=== PATIENT | female | born 1985 | race Caucasian/White ===

== ENCOUNTER 2024-03-29 08:04 | Outpatient (AMB) | payer BC, SELFPAY ==
--- NOTE | 2024-03-29 08:10 | A.OFFPC_ITS ---
Vital Signs 03/29/24 08:14 Height 5 ft 2 in Weight 145 lb 4 oz BMI 26.6 BP 114/64 Blood Pressure Location Rt brachial Position Sitting Respiration 14 Pulse 89 Pulse Source Pulse Oximeter Pulse Oximetry (%) 98 Oxygen Delivery Method Room Air Intake Visit Reasons: Establish Care Intake Note: new patient to establish care Allergies No Known Allergies Allergy (Verified 03/29/24 08:23) Medication List - Last Reconciled 03/29/24 by Charlotte Morales, CYTOLOGIST- fluoxetine 20 mg PO DAILY propranolol 10 mg PO DAILY Tobacco use date assessed: 03/29/24 Dental Screening Dental Screen Date: 03/29/24 Did you have a dental visit in the last 12 months?: Yes Did you have a dental problem in the last 6 months where you did not have access to dental care?: No Was dental information given to patient?: Patient has dentist HPI HPI Comments History of Present Illness Details 38-year-old ARJUN, IBS 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 PAP ? Tdap Specialists: Counselor FABIAN Garcia Here today to [facility], Coming from [facility] No medical record avail today. ARJUN worse over the last year, on BB and SSRI. SSRI was increased recently. BB is PRN only. Has physical sx of heart racing, BB is helping. However did not work on its own, better w/ SSRI. Mornings seem to be worse along w/ half of the day. Had one episode of panic. Tried taking SSRI at HS and now taking in the AM. A few weeks ago, felt like could not get OOB, felt so tired. Then the last week, cannot sleep. Her initial sx started while at work about 1 year ago. Reports no sx prior to that. Grandfather did around-obi this time. Admits to being a worrier by nature. Reports regular periods. vasectomy. Recent labs to include thyroid labs and US done and WNL. Did holter monitor, too, 24 hours. Reports negative finding. Active w/ counselor. Has chronic GI issues, has had lots of testing done to include EGD, colon, US, gastroparesis r/o. Has repeat colon scheduled this year. States the only dx was IBS. Feels bloated, gassy, inconsistent bowels. No vomiting or wt loss. No known triggers. Improved w/ childbearing. Negative food allergy testing by PCP & GI Mapping + parasite and bacteria, tx w/ AB. Also noted inflammation. Denies worsenig of sx w/ SSRI. Exam: awake alert NAD scleras nonicteric MMM RRR LS CTAB Abd soft, nontender, normoactive BS x 4 Mood and affect approriate Plan: Increase prozac from 20mg to 30mg QD. Cont propranolol 10mg PRN for anxiety. Cont care w/ GI, get me medical records please to review RTO 6 weeks for f/u on prozac increase, sooner PRN This note is constructed using voice recognition software. While every effort has been made to ensure accuracy in fashion buyer, still errors may have been included Sometimes, these errors may affect the content or meaning of the given sentence . Total time spent caring for the patient today was 34 minutes. This includes time spent before the visit reviewing the chart, time spent during the visit, and time spent after the visit on documentation PFSH Medical History (Updated 03/29/24 @ 08:55 by Charlotte Morales, [facility]) IBS (irritable bowel syndrome) Anxiety Surgical History (Updated 03/29/24 @ 08:24 by Abena Ambrocio) No pertinent past surgical history Family History (Updated 03/29/24 @ 08:25 by Abena Ambrocio) Father High cholesterol Maternal Grandmother Prostate cancer Paternal Grandfather Lung cancer Social History Housing: House Patient Tobacco Use Status: Never used Tobacco e-Cigarette/Vaping Use: Never Used service: No Current occupational status: employed 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 1. Little interest or pleasure in doing things: not at all 2. Feeling down, depressed, or hopeless: not at all 3. Trouble falling or staying asleep, or sleeping too much: several days 4. Feeling tired or having little energy: not at all 5. Poor appetite or overeating: not at all 6. Feeling bad about yourself - or that you are a failure or have let yourself or your family down: not at all 7. Trouble concentrating on things, such as reading the newspaper or watching television: not at all 8. Moving or speaking so slowly that other people could have noticed. Or the opposite - being so fidgety or restless that you have been moving around a lot more than usual: not at all 9. Thoughts that you would be better off or of hurting yourself in some way: not at all Total score: 1 Depression Screening Interpretation: Negative Depression Screening Done: Yes 74031 - PHQ-9 Billing: Yes Source: Developed by Drs. Randy Robins, Monae Maldonado, Sen Muller and colleagues, with an educational ada from [employer]. Thrive Questionnaire Date Thrive assessed: 03/29/24 I am a: Patient What is your living situation today?: I have a steady place to live Within the past 12 months, did the food you bought not last and you didn't have the money to get more?: Never true Within the past 12 months, did you worry whether your food would run out before you got money to buy more?: Never true Do you have trouble paying for medicines?: No Do you have trouble getting transportation to medical appointments?: No Do you have trouble paying your heating and electricity bill?: No Do you have trouble taking care of your child, family member or friend?: No Do you have trouble with day-to-day activities such as bathing, preparing meals, shopping, managing finances, etc.?: No Are you currently unemployed and looking for a job?: No Are you interested in more education?: No THRIVE Score: 0 AUDIT C Alcohol Use Questionnaire (AUDIT-C) 1. How often do you have a drink containing alcohol?: Never Total Score: 0 Score Reviewed/Action Taken: Yes ARJUN-7 AMB Questionnaire ARJUN-7 Date ARJUN - 7 assessed: 03/29/24 Feeling nervous, anxious, or on edge: 1 = Several days Not being able to stop or control worryin = Not at all Worrying too much about different things: 1 = Several days Trouble relaxin = Not at all Being so restless that it is hard to sit still: 0 = Not at all Becoming easily annoyed or irritable: 0 = Not at all Feeling afraid as if something awful might happen: 0 = Not at all Total ARJUN-7 score (0-4 normal; 5-9 mild; 10-14 moderate; 15-21 severe): 2 Source: Developed by Drs. Randy Robins, Monae Maldonado, Sen Muller and colleagues, with an educational ada from [employer]. ARJUN-7 Assessment Billing ARJUN-7 Assessment Tool: ARJUN-7 Assessment 66667 Physical exam (Primary Care) Vital Signs: Last Vital Signs Pulse 89 03/29/24 08:14 Resp 14 03/29/24 08:14 BP 114/64 03/29/24 08:14 Pulse Ox 98 03/29/24 08:14 Oxygen Delivery Method Room Air 03/29/24 08:14 BMI result Body Mass Index 26.6 Tobacco/Smoking Status: Tobacco use Status Tobacco use date assessed 03/29/24 03/29/24 08:19 Patient Tobacco Use Status Never used Tobacco 03/29/24 08:19 e-Cigarette/Vaping Use Never Used 03/29/24 08:19 PHQ-9: PHQ-9 Score PHQ-9: Total score 1 03/29/24 08:21 Depression Screening Interpretation: Negative Thrive Assessment: Date of Thrive Assessment Date Thrive assessed 03/29/24 03/29/24 08:21 Assessment and Plan Assessment & Plan (1) ARJUN (generalized anxiety disorder): Code(s): F41.1 - Generalized anxiety disorder (2) IBS (irritable bowel syndrome): Code(s): K58.9 - Irritable bowel syndrome without diarrhea Qualifiers: Irritable bowel syndrome type: with both diarrhea and constipation Qualified Code(s): K58.2 - Mixed irritable bowel syndrome Medications: New fluoxetine 10 mg PO DAILY 30 caps 1RF Patient Instructions: Walk-In Care (Urgent Care): We Make it Easy Walk-in for urgent medical issues such as: ? Seasonal Allergies ? Insect Bites ? Cough ? Diarrhea ? Acute Asthma Attacks ? Back, Knee or Joint Pain ? Ear Infection ? Fever without a Rash ? Headaches ? Nausea ? [place] Eye, Rash or Skin Irritation ? Sore Throat ? Sports Physicals ? Vomiting Most insurances are accepted. Patients do not need to be part of the [facility] to seek care at the walk-in clinic. Locations [facility] , [place] [address] ? [phone] [facility] Walk-In Care in [place] provides services to ages 18 and over. Open Wednesday-Wednesday: 8 a.m. to 5 p.m. and Wednesday: 9 a.m. to 3 p.m.* *Hours may vary due to staffing availability. To confirm Walk-In Care hours in [place], please call [phone]. [address] [place] [address] ? [phone] [facility] Walk-In Care in [place] provides services to ages 12 and over. Open Wednesday-Wednesday: 8 a.m. to 5 p.m. Hours may vary due to staffing availability. To confirm Walk-In Care hours in [place], please call [phone]. LABORATORY SERVICES: [facility] Lab ? Primary Location [address] [place] [address] Wednesday through Wednesday 6:00 AM ? 5:00 PM Wednesday 7:00 AM ? 11:00 AM* [phone] The [facility] Lab is centrally located near the front entrance of the [facility] for easy outpatient access. Convenient parking is provided for outpatients. *Hours may vary due to staffing availability. To confirm Laboratory hours for any location, please call [phone]. Offsite Location For your convenience, we offer offsite laboratory draw stations at the following locations: [address] [place] [address] ? [address], [address] Wednesday through Wednesday 7:30 AM ? 1:00 PM* [phone] *Hours may vary due to staffing availability. To confirm Laboratory hours for any location, please call [phone]. [place] ? [address] Wednesday through Wednesday 6:00 AM ? 3:30 PM* Wednesday 6:30 AM ? 3 PM* [phone] *Hours may vary due to staffing availability. To confirm Laboratory hours for any location, please call [phone] [place] [address] Wednesday through Wednesday 7:30 AM ? 4:00 PM* [phone] *Hours may vary due to staffing availability. To confirm Laboratory hours for any location, please call [phone]. [facility] Wednesday through 9:00 AM ? 4:00 PM* *Hours may vary due to staffing availability. To confirm Laboratory hours for any location, please call [phone]. Appointments are not necessary. Walk-ins are welcome. Like all the departments throughout the [facility], our Lab undergoes frequent reviews to ensure the quality and accuracy of test results, and our staff takes special pride in its status as a nationally accredited facility. Patient Portal: ONE PATIENT. ONE RECORD. BETTER CARE. [facility] has a fully integrated, cutting- edge mobile electronic health information system that has revolutionized the way we care for our patients and manage our organization. This system improves communication and coordination enabling us to provide safe, higher-quality care, and an overall positive experience for staff and patients. Our first priority, as always, is to deliver the highest quality care possible. The system is running in the background supporting that priority. This portal is for all [facility] services and practices. If you are experiencing any technical difficulties with enrolling or logging into the Patient Portal please complete the [facility] Patient Portal Technical Support Form. [facility] now offers a new secure on-line interactive tool for patients to review their health information ? Patient Portal. This interactive web portal will enable patients and their families to take an active role in their care by providing easy, secure access to their health information via the internet. The Patient Portal provides patients with instant access to their health information, including laboratory results, medications, allergies, demographic information, visit history, and more. In addition to managing their own care, parents and health care proxies with authorized consent will appreciate the ability to access the records of those individuals for whom they provide care. Please note: if you wish to gain access (Proxy) to another patient?s portal, you will be required to come to the Medical Records Department in person at [facility]. Both the patient giving proxy access and the proxy will need to provide photo identification and complete the appropriate authorization. The Patient Portal also allows track their appointments online. The [facility] Patient Portal also saves patients time by allowing them to submit updates to their demographic and contact information prior to their visits. Portal email notifications will also alert patients to any new activity on their portal, such as test results and new appointments. In order to initially enroll in the [facility] Patient Portal, you will need to enter some required information including the following: ? your [facility] Medical Record number ? your personal home email address ? name ? date of Please note: In order to enroll in the [facility] Patient Portal, we need to have your email address on file in your electronic medical record. The email address needs to be specific for one person (yourself) in order for your Portal enrollment to be successful. You can update your email address in person with our Registration staff when you are registering for a hospital visit. Otherwise, you will need to come to the Health Information Management (Medical Records) Department at [facility]. We are open from Wednesday ? Wednesday from 7:30 a.m. ? 4:30 p.m. You will be required to present a photo id. Once you have successfully enrolled in the Patient Portal, you will receive a one-time user id and password for the Portal, sent to your email address. This will allow you to log into the Patient Portal within 99 hrs and reset your own logon id and password, and define personal security questions. Once your permanent login and password have been set, you can log into the [facility] Patient Portal at any time via the blue button above or from the Portal Logon button on any page of the [facility] website. [facility] encourage all of our patients to enroll in Patient Portal as it presents a valuable opportunity for patients and their families to actively participate in their care and stay healthy Welcome to [facility]. We look forward to working with you. Coding Level of Care Code New Pt Level 3 (89052) Diagnoses ARJUN (generalized anxiety disorder) F41.1 Irritable bowel syndrome with both constipation and diarrhea K58.2 Irritable bowel syndrome type: with both diarrhea and constipation Additional Codes ARJUN-7 Assessment Billing - ARJUN-7 Assessment Tool: ARJUN-7 Assessment 29178 ([id number])
[2024-03-29 08:14] VITALS: BP 114/64; PULSE 89; RESP 14; O2SAT 98; BMI 26.6
== END 2024-03-29 09:00 | disposition home or self-care (01) ==
PROVIDERS: PCP Nurse Practitioner Family; Visit Provider Nurse Practitioner Family
DX: F41.1 Generalized anxiety disorder (principal); K58.2 Mixed irritable bowel syndrome
CPT/HCPCS: 96127; 99203

== ENCOUNTER 2024-05-11 09:42 | Outpatient (AMB) | payer BC, SELFPAY ==
--- NOTE | 2024-05-11 09:45 | MHC.PC.OV ---
Vital Signs 05/11/24 09:48 05/11/24 10:35 Height 5 ft 2 in Weight 150 lb 6 oz BMI 27.5 BP 98/66 118/62 Blood Pressure Location Rt brachial Rt brachial Position Sitting Sitting Respiration 13 Pulse 88 Pulse Source Pulse Oximeter Pulse Oximetry (%) 97 Oxygen Delivery Method Room Air Intake Visit Reasons: F/U on meds Intake Note: follow up on meds and shes not sure when was her last pap. 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 Awakes feeling better . Sometimes feels like anxiety better, sometimes not. Feel like had 2 weeks straight that were bad, took Propranolol QD Then had 1 week that was great. Didnt need the PRN BB Then the past week was a mix of sx. Denies any situation/environment change, new stessors. Describes lump in throat thinks she is having reflux, heart burn, taking Tums and pepcid with + effect. In December choked after swallowing supplements. then ate oatmeal felt like it didnt go down; tried h20, it came back out again. Since this time, anxious about choking. a few weeks ago this is not working in regards to her anxiety being managed. Exam: awake alert NAD scleras nonicteric MMM RRR LS CTAB Mood and affect approriate Plan: Discuss today that the reflux symptoms are likely related to the increase in the propranolol use. Okay to continue to use Tums or Pepcid to control the acid reflux. Ultimately the goal would be to better control her anxiety so that there was no need to use the propranolol as often. STart 05/14/24 Take Prozac 10 mg Daily, Start Buspirone 5mg po BID at the same time 05/21/24 Take prozac every other day 3 Wed/Wed/05/28 take one dose on Wednesday then STOP. Please schedule fu for pap with ObGyn RTO 6 weeks to f/u on ARJUN. Sooner PRN This note is constructed using voice recognition software. While every effort has been made to ensure accuracy in medical cost consultant, still errors may have been included Sometimes, these errors may affect the content or meaning of the given sentence . Total time spent caring for the patient today was 34 minutes. This includes time spent before the visit reviewing the chart, time spent during the visit, and time spent after the visit on documentation PFSH Medical History (Updated 05/11/24 @ 10:54 [facility] IBS (irritable bowel syndrome) Anxiety Surgical History (Updated 03/29/24 @ 08:24 by Abena Ambrocio MA) No pertinent past surgical history Family History (Updated 03/29/24 @ 08:25 by Abena Ambrocio MA) Father High cholesterol Maternal Grandmother Prostate cancer Paternal Grandfather Lung cancer Social History Housing: House Patient Tobacco Use Status: Never used Tobacco e-Cigarette/Vaping Use: Never Used service: No Current occupational status: employed 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 1. Little interest or pleasure in doing things: not at all 2. Feeling down, depressed, or hopeless: not at all 3. Trouble falling or staying asleep, or sleeping too much: several days 4. Feeling tired or having little energy: several days 5. Poor appetite or overeating: not at all 6. Feeling bad about yourself - or that you are a failure or have let yourself or your family down: not at all 7. Trouble concentrating on things, such as reading the newspaper or watching television: not at all 8. Moving or speaking so slowly that other people could have noticed. Or the opposite - being so fidgety or restless that you have been moving around a lot more than usual: not at all 9. Thoughts that you would be better off or of hurting yourself in some way: not at all Total score: 2 44951 - PHQ-9 Billing: Yes Source: Developed by Drs. Randy Roibns, Monae Maldonado, Sen Muller and colleagues, with an educational ada from [employer]. Thrive Questionnaire Date Thrive assessed: 05/11/24 I am a: Patient What is your living situation today?: I have a steady place to live Within the past 12 months, did the food you bought not last and you didn't have the money to get more?: Never true Within the past 12 months, did you worry whether your food would run out before you got money to buy more?: Never true Do you have trouble paying for medicines?: No Do you have trouble getting transportation to medical appointments?: No Do you have trouble paying your heating and electricity bill?: No Do you have trouble taking care of your child, family member or friend?: No Do you have trouble with day-to-day activities such as bathing, preparing meals, shopping, managing finances, etc.?: No Are you currently unemployed and looking for a job?: No Are you interested in more education?: No Please select the resources that you would like help with: None Currently or been in a relationship where the following occur: No concerns reported THRIVE Score: 0 AUDIT C Alcohol Use Questionnaire (AUDIT-C) 1. How often do you have a drink containing alcohol?: 2-3 times a week 2. How many drinks containing alcohol do you have on a typical day when you are drinking?: 3 or 4 Total Score: 4 ARJUN-7 AMB Questionnaire ARJUN-7 Date ARJUN - 7 assessed: 05/11/24 Feeling nervous, anxious, or on edge: 1 = Several days Not being able to stop or control worryin = Not at all Worrying too much about different things: 1 = Several days Trouble relaxin = Not at all Being so restless that it is hard to sit still: 0 = Not at all Becoming easily annoyed or irritable: 0 = Not at all Feeling afraid as if something awful might happen: 1 = Several days Total ARJUN-7 score (0-4 normal; 5-9 mild; 10-14 moderate; 15-21 severe): 3 Source: Developed by Drs. Randy Robins, Monae Maldonado, Sen Muller and colleagues, with an educational ada from [employer]. ARJUN-7 Assessment Billing ARJUN-7 Assessment Tool: ARJUN-7 Assessment 86848 Physical exam (Primary Care) Vital Signs: Last Vital Signs Pulse 88 05/11/24 09:48 Resp 13 05/11/24 09:48 BP 118/62 05/11/24 10:35 Pulse Ox 97 05/11/24 09:48 Oxygen Delivery Method Room Air 05/11/24 09:48 BMI result Body Mass Index 27.5 Tobacco/Smoking Status: Tobacco use Status Tobacco use date assessed 03/29/24 05/11/24 09:47 Patient Tobacco Use Status Never used Tobacco 05/11/24 09:47 e-Cigarette/Vaping Use Never Used 05/11/24 09:47 PHQ-9: PHQ-9 Score PHQ-9: Total score 2 05/11/24 10:09 Thrive Assessment: Date of Thrive Assessment Date Thrive assessed 05/11/24 05/11/24 09:47 Currently or been in a relationship where the following occur: No concerns reported Coding Level of Care Code Est Pt Level 4 (34565) Complex EM visit Add On G2211 Diagnoses ARJUN (generalized anxiety disorder) F41.1 GERD without esophagitis K21.9 Screening for cervical cancer Z12.4 Additional Codes ARJUN-7 Assessment Billing - ARJUN-7 Assessment Tool: ARJUN-7 Assessment 10257 ([id number]) Assessment & Plan Assessment & Plan (1) ARJUN (generalized anxiety disorder): Code(s): F41.1 - Generalized anxiety disorder Category: Medical Plan: . (2) GERD without esophagitis: Code(s): K21.9 - Gastro-esophageal reflux disease without esophagitis Category: Medical Plan: . (3) Screening for cervical cancer: Code(s): Z12.4 - Encounter for screening for malignant neoplasm of cervix Plan: . Medications: New buspirone 5 mg PO BID 60 tabs 1RF Discontinued fluoxetine Discontinued Reason: Doctor's Order 10 mg PO DAILY 30 caps 1RF fluoxetine Discontinued Reason: Doctor's Order 20 mg PO DAILY 30 caps 1RF Patient Instructions: Plan: STart 05/14/24 Take Prozac 10 mg Daily, Start Buspirone 5mg po BID at the same time 05/21/24 Take prozac every other day 3 Wed/Wed/05/28 take one dose on Wednesday then STOP
[2024-05-11 09:48] VITALS: BP 98/66; PULSE 88; RESP 13; O2SAT 97; BMI 27.5
[2024-05-11 10:35] VITALS: BP 118/62
== END 2024-05-11 10:23 | disposition home or self-care (01) ==
PROVIDERS: PCP Nurse Practitioner Family; Visit Provider Nurse Practitioner Family
DX: F41.1 Generalized anxiety disorder (principal); K21.9 Gastro-esophageal reflux disease without esophagitis; Z12.4 Encounter for screening for malignant neoplasm of cervix

== ENCOUNTER → 2024-05-11 09:42 | Outpatient (BNVA) | payer BC, SELFPAY | PROVIDERS: PCP Nurse Practitioner Family; Visit Provider Nurse Practitioner Family | DX: F41.1 Generalized anxiety disorder (principal); K21.9 Gastro-esophageal reflux disease without esophagitis; Z79.899 Other long term (current) drug therapy | CPT/HCPCS: 96127 ==

== ENCOUNTER 2024-06-28 13:07 | Outpatient (AMB) | payer BC, SELFPAY ==
--- NOTE | 2024-06-28 13:14 | A.OFFPC_ITS ---
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 She has a history of generalized anxiety disorder and was experiencing daily symptoms characterized by feelings of nervousness, heart racing, and a sensation of ellen owness in her throat. These symptoms intensified during a period when she was taking her buspirone twice daily. She reported feeling an improvement when the dosage of buspirone was increased to three times a day, though occasional symptoms persisted. Overall she feels tired, exhausted, can nap at anytime. + snoring. Never had sleep study The patient also experienced palpitations occurring during non-strenuous activities, such as sitting at her desk or resting in bed. This symptom has shown improvement since the increase in buspirone dose. She reported not using propranolol after experiencing previous symptoms of reflux, which has since resolved. The patient noted exertional dyspnea, experiencing an increased heart rate and breathlessness during activities like climbing stairs or carrying laundry. She engages primarily in weightlifting and yoga, with limited cardio exercise, which might contribute to these symptoms. Physical Exam General: Awake, alert. No apparent distress Eyes: Sclera and conjunctiva clear bilaterally Cardiovascular: RRR Respiratory: Clear to auscultation bilaterally, no shortness of breath noted during examination Results - Previous Holter monitor completed; res ults reportedly normal . Plan 1. Generalized Anxiety Disorder: Adjust buspirone to 7.5 mg three times daily, with consideration to increase to 10 mg three times daily depending on symptom c ontrol. Encourage consistent medication timing. 2. Palpitations: Monitor symptoms with c urrent medication adjustments; review possible stress-related triggers. 3. Exertional Dyspnea: Maintain awarenes s of symptom patterns, consider a stress echocardiogram if symptoms persist or worsen. 4. Gastroesophageal Reflux Disease: Reso lved; no active management needed. 5. Sleep Study: Consider an at-home slee p study to rule out sleep disturbances such as sleep apnea. Patient was informed and verbally consented to the use of an ambient scribe for clinic note documentation during this visit. Discussion Notes During the visit, we discussed the management of the patient's anxiety, including the benefits and potential dosage adjustments for buspirone. The patient was made aware of the importance of consistent medication timing and the possibility of side effects. We talked about the potential need for a sleep study if symptoms of fatigue persist, acknowledging the potential link between a nxiety and sleep disturbances. The patient was advised to monitor the pattern of palpitations and shortness of breath, considering further cardiovascular evaluation if necessary. Follow-up was suggested to assess the effectiveness of medication adjustments and overall symptom control. Patient Instructions - Take buspirone consistently at schedul ed times and consider adjusting to 7.5 mg - 10 three times daily. - Log symptoms of palpitations and exert ional dyspnea, paying attention to triggers or patterns. - Consider increasing cardio exercise gr adually. - Monitor fatigue levels; consider a sle ep study if symptoms persist. - Notify if there are any issues with me dication filling or if symptoms worsen. RTO 6-8 WEEKS TO F/U ON ^ BUSPIRONE, SOB, PALPIATIONS, SOONER PRN THIS NOTE IS CONSTRUCTED USING VOICE RECOGNITION SOFTWARE. WHILE EVERY EFFORT HAS BEEN MADE TO ENSURE ACCURACY IN DIVINITY PROFESSOR, STILL ERRORS MAY HAVE BEEN INCLUDED SOMETIMES, THESE ERRORS MAY AFFECT THE CONTENT OR MEANING OF THE GIVEN SENTENCE . TOTAL TIME SPENT CARING FOR THE PATIENT TODAY WAS 42 MINUTES. THIS INCLUDES TIME SPENT BEFORE THE VISIT REVIEWING THE CHART, TIME SPENT DURING THE VISIT, AND TIME SPENT AFTER THE VISIT ON DOCUMENTATION PFSH Medical History (Updated 06/28/24 @ 14:03 by MIGUELINA Morris) IBS (irritable bowel syndrome) Anxiety Surgical History (Updated 03/29/24 @ 08:24 by Abena Ambrocio MA) No pertinent past surgical history Family History (Updated 03/29/24 @ 08:25 by Abena Ambrocio MA) Father High cholesterol Maternal Grandmother Prostate cancer Paternal Grandfather Lung cancer Social History Housing: House Patient Tobacco Use Status: Never used Tobacco e-Cigarette/Vaping Use: Never Used service: No Current occupational status: employed 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 21767 - PHQ-9 Billing: Patient declined-do not bill Source: Developed by Drs. Randy Robins, Monae Maldonado, Sen Muller and colleagues, with an educational ada from [employer]. Thrive Questionnaire Date Thrive assessed: 06/28/24 I am a: Patient What is your living situation today?: I have a steady place to live Within the past 12 months, did the food you bought not last and you didn't have the money to get more?: Never true Within the past 12 months, did you worry whether your food would run out before you got money to buy more?: Never true Do you have trouble paying for medicines?: No Do you have trouble getting transportation to medical appointments?: No Do you have trouble paying your heating and electricity bill?: No Do you have trouble taking care of your child, family member or friend?: No Do you have trouble with day-to-day activities such as bathing, preparing meals, shopping, managing finances, etc.?: No Are you currently unemployed and looking for a job?: No Are you interested in more education?: No Please select the resources that you would like help with: None Currently or been in a relationship where the following occur: No concerns reported THRIVE Score: 0 ARJUN-7 AMB Questionnaire ARJUN-7 Date ARJUN - 7 assessed: 05/11/24 Source: Developed by Drs. Randy Robins, Monae Maldonado, Sen Muller and colleagues, with an educational ada from [employer]. Physical exam (Primary Care) Vital Signs: Last Vital Signs Pulse 88 06/28/24 13:18 Resp 13 06/28/24 13:18 BP 124/79 06/28/24 13:18 Pulse Ox 98 06/28/24 13:18 Oxygen Delivery Method Room Air 06/28/24 13:18 BMI result Body Mass Index 28.0 Tobacco/Smoking Status: Tobacco use Status Tobacco use date assessed 03/29/24 06/28/24 13:15 Patient Tobacco Use Status Never used Tobacco 06/28/24 13:15 e-Cigarette/Vaping Use Never Used 06/28/24 13:15 Thrive Assessment: Date of Thrive Assessment Date Thrive assessed 06/28/24 06/28/24 13:15 Currently or been in a relationship where the following occur: No concerns r eported Coding Level of Care Code Est Pt Level 5 (98837) Complex EM visit Add On G2211 Diagnoses ARJUN (generalized anxiety disorder) F41.1 Exertional shortness of breath R06.02 Palpitations R00.2 GERD without esophagitis K21.9 Assessment & Plan Assessment & Plan (1) ARJUN (generalized anxiety disorder): Code(s): F41.1 - Generalized anxiety disorder Category: Medical (2) Exertional shortness of breath: Code(s): R06.02 - Shortness of breath Category: Medical (3) Palpitations: Code(s): R00.2 - Palpitations Category: Medical (4) GERD without esophagitis: Comment: RESOLVED Code(s): K21.9 - Gastro-esophageal reflux disease without esophagitis Category: Medical Plan . Medications: Changed From buspirone 5 mg PO BID 60 tabs 1RF To buspirone 10 mg (2 x 5 mg) PO TID 30 days 180 tabs 1RF
[2024-06-28 13:18] VITALS: BP 124/79; PULSE 88; RESP 13; O2SAT 98; BMI 28.0
== END 2024-06-28 13:51 | disposition home or self-care (01) ==
PROVIDERS: PCP Nurse Practitioner Family; Visit Provider Nurse Practitioner Family
DX: R06.02 Shortness of breath (principal); F41.1 Generalized anxiety disorder; R00.2 Palpitations; K21.9 Gastro-esophageal reflux disease without esophagitis

== ENCOUNTER → 2024-06-28 13:07 | Outpatient (BNVA) | payer BC, SELFPAY | PROVIDERS: PCP Nurse Practitioner Family; Visit Provider Nurse Practitioner Family ==

== ENCOUNTER 2024-08-16 12:23 | Outpatient (AMB) | payer BC, SELFPAY ==
--- NOTE | 2024-08-16 12:28 | A.OFFPC_ITS ---
Vital Signs 08/16/24 12:33 Height 5 ft 2 in Weight 152 lb 4 oz BMI 27.8 BP 102/66 Blood Pressure Location Rt brachial Position Sitting Respiration 12 Pulse 85 Pulse Source Pulse Oximeter Temp 98.7 F Temp Source Oral Pulse Oximetry (%) 100 Oxygen Delivery Method Room Air Intake Visit Reasons: 6-8 weeks 30 min fu ^ buspar Intake Note: follow up on meds Potato Peeler Required: No Allergies No Known Allergies Allergy (Verified 08/16/24 13:03) Medication List - Last Reconciled 08/16/24 by Charlotte Morales, WHITING CAN WORKER- buspirone 10 mg (2 x 5 mg) PO TID propranolol 10 mg PO DAILY Tobacco use date assessed: 03/29/24 Dental Screening Dental Screen Date: 03/29/24 HPI HPI Comments History of Present Illness Details 38-year-old ARJUN, IBS 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 She was previously diagnosed with generalized anxiety disorder and noted an increase in symptoms, prompting a change in medication dosage from 5 mg buspirone three times daily to 10 mg three times daily. Since the change, there has been a notable improvement in anxiety symptoms, with fewer episodes of palpitations and decreased intensity of nervousness. She reported good adherence and effective management of symptoms following implemented routine of taking medication, set by alarms to maintain consistency. Regarding shortness of breath, she experiences episodic breathlessness primarily during increased physical activities, such as stair climbing or carrying her children and household items. These episodes are characterized by an increased heart rate and heavier breathing, although she does not experience these symptoms during structured exercise like strength training at the gym. She denies feeling out of breath when walking on flat surfaces but notes that it may be more prominent when rushing or under exertion. Her history of gastrointestinal issues included a normal capsule endoscopy before reflecting no physically detectable abnormalities. She started acupuncture around June-July which may have contributed to some improvement in symptoms. She feels less sluggish and less mentally foggy since starting acupuncture sessions and reported making dietary modifications following dietary suggestions provided. Wonders about seeing a functional med provider for chronic GI issues present s [facility]. Physical Exam General: Awake, alert. No apparent distress Eyes: Sclera and conjunctiva clear bilaterally Cardiovascular: RRR Respiratory: Clear to auscultation bilaterally, no shortness of breath noted during examination Mood and affect WNL Results - Capsule Endoscopy: Normal results lina pickard to [facility]. per report i do not have a copy of this. Plan - Anxiety: Continue with buspirone 10 mg three times daily, as it is effectively managing anxiety symptoms. - Shortness of Breath: Consider monitori ng symptoms with a smartwatch to gather data on heart rate and oxygen levels during exertion; the patient is to book a stress echocardiogram for further evaluation.. ok to cancel if she does not feel it is needed - just send me a portal message. Can consider PFTs, too - Gastrointestinal Issues: Continue diet hitesh modifications and acupuncture; consult with a functional medicine specialist if necessary Radha Reynolds. - Health Maintenance: Schedule routine p hysical examination in October. Patient was informed and verbally consented to the use of an ambient scribe for clinic note documentation during this visit. Discussion Notes I discussed the ongoing management of the patient's anxiety, reinforcing the continuation of buspirone at 10 mg three times daily. We addressed the shortness of breath the patient experiences on exertion, contemplating if the symptoms could be further evaluated with a stress echocardiogram to assess cardiac functionality under stress. We considered contributing factors to her breathlessness, such as inadvertent breath-holding or increased exertion while ascending stairs. Regarding gastrointestinal concerns, I recommended continuing dietary management and acupuncture, with a possible consultation with a functional medicine specialist if symptoms persist. I provided insights on the non-invasive nature of the proposed investigations and stressed the importance of convenience in scheduling and monitoring these issues. We arranged for the follow-up to be at a convenient time for her personal schedule, considering her lifestyle demands. Patient Instructions - Continue taking buspirone 10 mg three times daily as prescribed. - Keep a record of any symptoms of short ness of breath, including situations in which they occur. - Monitor exercise and exertion levels; report any consistent changes or patterns. - Maintain current dietary adjustments a nd continue acupuncture sessions. - Book an appointment for a stress echoc ardiogram and monitor symptoms until then. - Follow-up in October for a physical exam ination or sooner if issues arise. Total time spent caring for the patient today was 45 minutes. This includes time spent before the visit reviewing the chart, time spent during the visit, and time spent after the visit on documentation, reviewing laboratory results, diagnostic imaging, medications, performing a medically necessary evaluation, counseling on diagnoses, care coordination, ordering appropriate tests, ordering appropriate medications, review of tests performed by other providers, reporting test results with the patient, communication with other healthcare providers. 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 1. Little interest or pleasure in doing things: not at all 2. Feeling down, depressed, or hopeless: not at all 3. Trouble falling or staying asleep, or sleeping too much: not at all 4. Feeling tired or having little energy: not at all 5. Poor appetite or overeating: not at all 6. Feeling bad about yourself - or that you are a failure or have let yourself or your family down: not at all 7. Trouble concentrating on things, such as reading the newspaper or watching television: not at all 8. Moving or speaking so slowly that other people could have noticed. Or the opposite - being so fidgety or restless that you have been moving around a lot more than usual: not at all 9. Thoughts that you would be better off or of hurting yourself in some way: not at all Total score: 0 Depression Screening Interpretation: Negative Depression Screening Done: Yes 55948 - PHQ-9 Billing: Yes Source: Developed by Drs. Randy Robins, Monae Maldonado, Sen Muller and colleagues, with an educational ada from [employer] Thrive Questionnaire Date Thrive assessed: 08/16/24 I am a: Patient What is your living situation today?: I have a steady place to live Within the past 12 months, did the food you bought not last and you didn't have the money to get more?: Never true Within the past 12 months, did you worry whether your food would run out before you got money to buy more?: Never true Do you have trouble paying for medicines?: No Do you have trouble getting transportation to medical appointments?: No Do you have trouble paying your heating and electricity bill?: No Do you have trouble taking care of your child, family member or friend?: No Do you have trouble with day-to-day activities such as bathing, preparing meals, shopping, managing finances, etc.?: No Are you currently unemployed and looking for a job?: No Are you interested in more education?: No Please select the resources that you would like help with: None Currently or been in a relationship where the following occur: No concerns reported THRIVE Score: 0 AUDIT C Alcohol Use Questionnaire (AUDIT-C) 1. How often do you have a drink containing alcohol?: 2-3 times a week 2. How many drinks containing alcohol do you have on a typical day when you are drinking?: 3 or 4 3. How often do you have six or more drinks on one occasion?: Never Total Score: 4 Score Reviewed/Action Taken: Yes ARJUN-7 AMB Questionnaire ARJUN-7 Date ARJUN - 7 assessed: 08/16/24 Feeling nervous, anxious, or on edge: 1 = Several days Not being able to stop or control worryin = Not at all Worrying too much about different things: 0 = Not at all Trouble relaxin = Not at all Being so restless that it is hard to sit still: 0 = Not at all Becoming easily annoyed or irritable: 0 = Not at all Feeling afraid as if something awful might happen: 0 = Not at all Total ARJUN-7 score (0-4 normal; 5-9 mild; 10-14 moderate; 15-21 severe): 1 Source: Developed by Drs. Randy Robins, Monae Maldonado, Sen Muller and colleagues, with an educational ada from [employer] ARJUN-7 Assessment Billing ARJUN-7 Assessment Tool: ARJUN-7 Assessment 37115 Physical exam (Primary Care) Vital Signs: Last Vital Signs Temp 98.7 F 08/16/24 12:33 Pulse 85 08/16/24 12:33 Resp 12 08/16/24 12:33 BP 102/66 08/16/24 12:33 Pulse Ox 100 08/16/24 12:33 Oxygen Delivery Method Room Air 08/16/24 12:33 BMI result Body Mass Index 27.8 Tobacco/Smoking Status: Tobacco use Status Tobacco use date assessed 03/29/24 08/16/24 12:29 Patient Tobacco Use Status Never used Tobacco 08/16/24 12:29 e-Cigarette/Vaping Use Never Used 08/16/24 12:29 PHQ-9: PHQ-9 Score PHQ-9: Total score 0 08/16/24 12:50 Depression Screening Interpretation: Negative Thrive Assessment: Date of Thrive Assessment Date Thrive assessed 08/16/24 08/16/24 12:29 Currently or been in a relationship where the following occur: No concerns reported Coding Level of Care Code Est Pt Level 5 (22928) Complex EM visit Add On G2211 Diagnoses ARJUN (generalized anxiety disorder) F41.1 Exertional shortness of breath R06.02 Palpitations R00.2 Irritable bowel syndrome with both constipation and diarrhea K58.2 Irritable bowel syndrome type: with both diarrhea and constipation Additional Codes ARJUN-7 Assessment Billing - ARJUN-7 Assessment Tool: ARJUN-7 Assessment 10495 ([id number]) PHQ-9 - 58770 - PHQ-9 Billing: Yes ([id number]) Assessment & Plan Assessment & Plan (1) ARJUN (generalized anxiety disorder): Code(s): F41.1 - Generalized anxiety disorder Category: Medical (2) Exertional shortness of breath: Code(s): R06.02 - Shortness of breath Category: Medical (3) Palpitations: Code(s): R00.2 - Palpitations Category: Medical (4) IBS (irritable bowel syndrome): Code(s): K58.9 - Irritable bowel syndrome, unspecified Category: Medical Qualifiers: Irritable bowel syndrome type: with both diarrhea and constipation Qualified Code(s): K58.2 - Mixed irritable bowel syndrome Plan . Orders: Orders CA echo stress exercise Today R00.2 - Palpitations, R06.02 - Shortness of breath
[2024-08-16 12:33] VITALS: BP 102/66; PULSE 85; RESP 12; TEMP 37.1; O2SAT 100; BMI 27.8
--- OUTSIDE RECORDS SUMMARY | 2024-08-16 14:17 | XMS_ITS | Encounter Summary ---
Author Organization [facility] Address [address] [place] [address] Care Team Providers Care Farm Agent Name Role Phone Jil Au NP Primary Care Provider [phone] Encounter Details Date Type Department Care Team (Late st Contact Info) Description 07/21/2024 Telephone Gastroenterology - [address] [place] [id number] Marlene Garcia MD [address] [place] [address] Social History Tobacco Use Types Packs/Day Years Used Date Smoking Tobacco: Never Assessed Sex and Gender Information Value Date Recorded Sex Assigned at Not on file Gender Identity Not on file Sexual Orientation Not on file Job Start Date Occupation Industry Not on file Not on file Not on file documented as of this encounter Progress Notes * Marlene Garcia MD - 07/21/2024 11:47 AM EST N/a documented in this encounter Plan of Treatment Not on file documented as of this encounter Visit Diagnoses Not on filedocumented in this encounter Care Teams Farm Agent Relationship Specialty Start Date End Date Jil Au NP [address] [place] [address] PCP - General 04/19/24 documented as of this encounter
--- OUTSIDE RECORDS SUMMARY | 2024-08-16 14:17 | XMS_ITS | Clinical Summary ---
Author Organization [facility] [address] [facility] Address [address] [place] [address] Phone Care Team Providers Care Health Services Director Name Role Phone Jil Au NP Primary Care Provider [phone] Encounters Date Type Department Care Team Description 07/21/2024 Telephone Gastroenterology - [address] [place] [phone] Marlene Garcia MD 07/13/2024 7:15 AM EST Office Visit Gastroenterology - [address] [place] [phone] Marlene Garcia MD Abnormal laboratory test result (Primary Dx) 07/13/2024 Telephone Gastroenterology - [address] [place] [phone] Jil Beyer MA 07/10/2024 2:15 PM EST Lab Draw Station - [address] [phone] Change in bowel habits 06/28/2024 Telephone Gastroenterology - [address] [place] [phone] Lala Vee MA from Last 3 Months Social History Tobacco Use Types Packs/Day Years Used Date Smoking Tobacco: Never Assessed Sex and Gender Information Value Date Recorded Sex Assigned at Not on file Gender Identity Not on file Sexual Orientation Not on file Job Start Date Occupation Industry Not on file Not on file Not on file Plan of Treatment Health Maintenance Due Date Last Done Comments Hepatitis B Vaccines (1 of 3 - 19+ 3-dose series) 11/09/2006 Cervical Cancer Screening: Pap Smear 11/09/2008 COVID-19 Vaccine ( season) 2024 07/09/2021, 11/11/2020, 10/14/2020 Influenza Vaccine (#1) 2024 , 05/02/2020, 05/10/2019, Additional history exists Depression Screening 05/04/2024 HIV Screening 05/04/2024 Hepatitis C Screening 05/04/2024 Social Influencers of Health Screening 05/04/2024 DTaP,Tdap,and Td Vaccines (2 - Td or Tdap) 09/08/2029 09/08/2019 HPV Vaccines Completed 06/20/2008, 01/25, 12/22/2007 HIB Vaccines Aged Out No longer eligi ble based on patient's age to complete this topic Hepatitis A Vaccines Aged Out No long er eligible based on patient's age to complete this topic IPV Vaccines Aged Out No longer eligi ble based on patient's age to complete this topic MMR Vaccines Aged Out No longer eligi ble based on patient's age to complete this topic Meningococcal ACWY Vaccine Aged Out N o longer eligible based on patient's age to complete this topic Pneumococcal Vaccine: Pediatrics (0 to 5 Years) and At-Risk Patients (6 to 64 Years) Aged Out No longer eligible based on patient's age to complete this topic RSV Immunization Patients Under 20 months Aged Out No longer eligible based on patient's age to complete this topic Varicella Vaccines Aged Out No longer eligible based on patient's age to complete this topic Procedures Procedure Name Priority Date/Time Associated Diagnosis Comments ENDOSCOPY, SMALL BOWEL Routine 07/13/2024 9:20 AM EST CALPROTECTIN, STOOL Routine 07/10/2024 2 :11 PM EST Change in bowel habits from Last 3 Months Results * Endoscopy, small bowel with ileum (07/13/2024 9:20 AM EST) Anatomical Region Laterality Modality Endoscopy Historical Provider GI~PROCEDURE REBECCA GODOY * Calprotectin, stool (07/10/2024 2:11 PM EST) Calprotectin, Fecal 10.3 <50 mcg/g 07/13/2024 2:50 PM EST [facility] Comment: <50 mcg/g ?Normal 50 - 120 mcg/g ?? Borderline >120 mcg/g ? Abnormal Borderline results suggest repeat testing in 4 to 6 weeks. Test performed at [facility], [address], [place], [place] ??[address] ? [phone] Pat García MD, PhD - Facer Operator Stool Rectum structure / Unknown Non-blood Collection / Unknown 07/10/2024 2:11 PM EST 07/10/2024 2:11 PM EST Marlene Garcia MD LAB BODY FLUIDS AND STOOLS ORDERABLES [facility] [address] [place] [address] from Last 3 Months Care Teams Health Services Director Relationship Specialty Start Date End Date Jil Au NP [address] [place] [address] PCP - General 04/19/24
--- OUTSIDE RECORDS SUMMARY | 2024-08-16 14:17 | XMS_ITS | Encounter Summary ---
Author Organization [facility] Address [address] [place] [address] Care Team Providers Care Research Subject Name Role Phone Jil Au NP Primary Care Provider [phone] Encounter Details Date Type Department Care Team (Late st Contact Info) Description 06/28/2024 Telephone Gastroenterology - [address] [place] [address] Lala Vee MA Social History Tobacco Use Types Packs/Day Years Used Date Smoking Tobacco: Never Assessed Sex and Gender Information Value Date Recorded Sex Assigned at Not on file Gender Identity Not on file Sexual Orientation Not on file Job Start Date Occupation Industry Not on file Not on file Not on file documented as of this encounter Progress Notes * Jil Beyer MA - 06/29/2024 10:33 AM EST ORDERED FECAL CALPROTECTIN AT [facility] .CAPSULE STUDY 07/13/24 AT 715 AM INSTRUCTIONS SENT TO PT VIA IPTEGO * Lala Vee MA - 06/28/2024 2:10 PM EST Pt just remembered told her she wanted to run a cap study after her colonoscopy,pt neverreceived a call from us. documented in this encounter Plan of Treatment Not on file documented as of this encounter Visit Diagnoses Not on filedocumented in this encounter Care Teams Research Subject Relationship Specialty Start Date End Date Jil Au NP [address] [place] [address] PCP - General 04/19/24 documented as of this encounter
== END 2024-08-16 13:14 | disposition home or self-care (01) ==
PROVIDERS: PCP Nurse Practitioner Family; Visit Provider Nurse Practitioner Family
DX: R06.02 Shortness of breath (principal); F41.1 Generalized anxiety disorder; R00.2 Palpitations; K58.2 Mixed irritable bowel syndrome

== ENCOUNTER → 2024-08-16 12:23 | Outpatient (BNVA) | payer BC, SELFPAY | PROVIDERS: PCP Nurse Practitioner Family; Visit Provider Nurse Practitioner Family | DX: F41.1 Generalized anxiety disorder (principal); R06.02 Shortness of breath; R00.2 Palpitations; K58.2 Mixed irritable bowel syndrome; Z79.899 Other long term (current) drug therapy | CPT/HCPCS: 96127 ==

== ENCOUNTER 2024-09-06 13:20 | Outpatient (REF) | payer BC, SELFPAY ==
[2024-09-06 14:34] LABS: Hemoglobin 13.2 g/dl (12.0-16.0); Mean Corpuscular HGB Conc 33.8 g/dl (31.0-35.0); Mean Corpuscular Hemoglobin 30.8 pg (27.0-33.0); Mean Corpuscular Volume 90.9 fL (80.0-98.0); Mean Platelet Volume 12.5 fL (9.4-12.3); Platelet Count 201 X10*3/uL (160-400); Red Blood Count 4.29 X10*6/uL (4.20-5.50); Red Cell Distribution Width 12.2 % (11.0-16.0); White Blood Count 7.1 X10*3/uL (4.8-10.8)
--- OUTSIDE RECORDS SUMMARY | 2024-09-06 14:38 | XMS_ITS | Encounter Summary ---
Author Organization [facility] Address [address] [place] [address] Care Team Providers Care High School Football Coach Name Role Phone Jil Au RECRUITMENT SPECIALIST Primary Care Provider [phone] Encounter Details Date Type Department Care Team (Late st Contact Info) Description 07/13/2024 7:15 AM EST Office Visit Gastroenterology - [address] [facility] [address] [place] [phone] Marlene Gramajo MD [address] [facility] [address] [place] [phone] Abnormal laboratory test result (Primary Dx) Social History Tobacco Use Types Packs/Day Years Used Date Smoking Tobacco: Never Assessed Comments Unknown Sex and Gender Information Value Date Recorded Sex Assigned at Not on file Legal Sex Female 10:57 PM EST Gender Identity Not on file Sexual Orientation Not on file documented as of this encounter Progress Notes * Marlene Gramajo MD - 07/13/2024 7:15 AM ESTAddended by: MARLENE GRAMAJO on: 08/23/2024 04:03 PM Modules accepted: Level of Service * Charmaine Holt MA - 07/13/2024 7:15 AM EST Pt came in for capsule study Pt swallowed pill with no problem Inst given and pt to return in 8 hours Pt came back with no problems documented in this encounter Plan of Treatment Not on file documented as of this encounter Visit Diagnoses Diagnosis Abnormal laboratory test result- Primary Other abnormal clinical finding documented in this encounter Care Teams High School Football Coach Relationship Specialty Start Date End Date Jil Au NP [address] [place] [address] PCP - General 04/19/24 documented as of this encounter
--- OUTSIDE RECORDS SUMMARY | 2024-09-06 14:38 | XMS_ITS | Clinical Summary ---
Author Organization [facility] 299 [facility] Address [address] [place] [address] Phone Care Team Providers Care Finish Off Operator Name Role Phone Jil Au NP Primary Care Provider [phone] Encounters Date Type Department Care Team Description 07/21/2024 Telephone Gastroenterology - [address] [place] [phone] Marlene Garcia MD 07/13/2024 7:15 AM EST Office Visit Gastroenterology - [address] [place] [phone] Marlene Garcia MD Abnormal laboratory test result (Primary Dx) 07/13/2024 Telephone Gastroenterology - [address] [place] [address] [phone] Jil Beyer MA 07/10/2024 2:15 PM EST Lab Draw Station - [address] [phone] Change in bowel habits 06/28/2024 Telephone Gastroenterology - [address] [place] [phone] Lala Vee MA from Last 3 Months Social History Tobacco Use Types Packs/Day Years Used Date Smoking Tobacco: Never Assessed Comments Unknown Sex and Gender Information Value Date Recorded Sex Assigned at Not on file Legal Sex Female 10:57 PM EST Gender Identity Not on file Sexual Orientation Not on file Plan of Treatment Health [...] patient's age to complete this topic Meningococcal B Vacine Aged Out No lo nger eligible based on patient's age to complete [...] AM EST) Anatomical Region Laterality Modality Endoscopy us Historical Provider GI~PROCEDURE ORDERABLES F inal Result * Calprotectin, stool (07/10/2024 2:11 PM EST) Calprotectin, Fecal 10.3 <50 mcg/g 07/13/2024 2:50 PM EST [facility] Comment: <50 mcg/g ?Normal 50 - 120 mcg/g ?? Borderline >120 mcg/g ? Abnormal Borderline results suggest repeat testing in 4 to 6 weeks. Test performed at [facility], [address] , [place], [place] ??[address] ? [phone] Pat García MD, PhD - Software Development Engineer Stool Rectum structure / Unknown Non-blood Collection / Unknown 07/10/2024 2:11 PM EST 07/10/2024 2:11 PM EST us Marlene Garcia MD LAB BODY FLUIDS AND STOOLS ORD ERABLES Final Result [facility] [address] [place] [address] from Last 3 Months Insurance [facility] Care Teams Finish Off Operator Relationship Specialty Start Date End Date Jil Au NP [address] [place] [address] PCP - General 04/19/24
[2024-09-06 15:19] LABS: Alanine Aminotransferase 23 U/L (0-31); Albumin Level 4.6 g/dL (3.5-5.0); Alkaline Phosphatase 35 U/L (39-117); Anion Gap 11 (12-20); Aspartate Amino Transferase 22 U/L (5-31); Bilirubin Total 0.5 mg/dL (0.0-1.0); Blood Urea Nitrogen 18 mg/dL (9-16); Calcium 8.8 mg/dL (8.4-10.2); Carbon Dioxide 27 mmol/L (22-29); Chloride 105 mmol/L (96-108); Estimated Glomerular Filt Rate > 60; Glucose Random 88 mg/dL (60-115); Iron 107 mcg/dL (30-160); Magnesium 2.1 mg/dL (1.6-2.6); Percent Iron Saturation 44 % (15-50); Phosphorus 3.9 mg/dL (2.7-4.5); Sodium 139 mmol/L (135-145); Total Iron Binding Capacity 243 mcg/dL (228-428); Total Protein 7.8 g/dL (6.5-8.0); Unsaturated Iron Binding 136 ug/dL
[2024-09-06 15:35] LABS: Ferritin 34 ng/mL (10-122); TSH reflex Free T4 0.76 uIU/mL (0.32-4.0)
[2024-09-06 15:49] LABS: Folate 10.3 ng/mL (> or = 4.0); Vitamin B12 510 pg/mL (200-900)
== END 2024-09-06 13:21 | disposition home or self-care (01) ==
LOC: HO.WFDLDS 13:20
PROVIDERS: Visit Provider Nurse Practitioner Family
DX: R06.02 Shortness of breath (principal); R00.2 Palpitations
CPT/HCPCS: 36415; 80053; 82607; 82728; 82746; 83540; 83735; 84100; 84443; 85027

== ENCOUNTER → 2024-09-12 11:00 | Outpatient (REF) | payer BC, SELFPAY ==
--- NOTE | 2024-09-12 11:02 | CA_ITS ---
Acquisition Time: 2024-09-12 11:13:09 Total Exercise Time: 00:10:40 Test Indications: Palpitations Medications: BUSPIRONE Protocol: LINUS Max HR: 162 BPM 88% of Pred: 184 BPM Max BP: 140/80 mmHG Max Work Load: 12.8 METS Exercise Stress Test with exercise 10 mins 40 secs of Linus Protocol, achieving 86% MPHR, with reports of SOB, no chest discomfort, without any arrythmias, with normotensive response to exercise. Without EKG changes meeting criteria for ischemia. In recovery, breathing returned to baseline. Echo images obtained by tech at rest adn post peak exercise. Definity contrast utilized. Tets reviewed with Dr. Horta. Referred By: Charlotte Morales Electronically Signed By: Maksim Ospina
--- OUTSIDE RECORDS SUMMARY | 2024-09-12 12:12 | XMS_ITS | Encounter Summary ---
Author Organization [facility] Address [address] [place] [address] Care Team Providers Care Credit Union Field Examiner Name Role Phone Jil Au CONSULTING PRACTICE MANAGER Primary Care Provider [phone] Encounter Details Date Type Department Care Team (Late st Contact Info) Description 07/13/2024 7:15 AM EST Office Visit Gastroenterology - [address] [facility] [address] [place] [phone] Marlene Gramajo MD [address] [facility] [address] [place] [phone] Abnormal laboratory test result (Primary Dx) Social [...] finding documented in this encounter Care Teams Credit Union Field Examiner Relationship Specialty Start Date End Date Jil Au NP [address] [place] [address] PCP - General 04/19/24 documented as of this encounter
--- OUTSIDE RECORDS SUMMARY | 2024-09-12 12:12 | XMS_ITS | Clinical Summary ---
Author Organization [facility] 299 [facility] Address [address] [place] [address] Phone Care Team Providers Care Transformer Coil Winder Name Role Phone Jil Au NP Primary Care Provider [phone] Encounters Date Type Department Care Team Description 07/21/2024 Telephone Gastroenterology - [address] [place] [phone] Marlene Garcia MD 07/13/2024 7:15 AM EST Office Visit Gastroenterology - [address] [place] [phone] Marlene Garcia MD Abnormal laboratory test result (Primary Dx) 07/13/2024 Telephone Gastroenterology - [address] [place] [address] [phone] Jil Beyer MA 07/10/2024 2:15 PM EST Lab Draw Station - [address] [phone] Change in bowel habits 06/28/2024 Telephone Gastroenterology - [address] [place] [phone] Lala Vee MA from Last 3 Months [...] 4 to 6 weeks. Test performed at [facility], [address] , [place], [place] ??[address] ? [phone] Pat García MD, PhD - Supervisor Agricultural Education Stool Rectum structure / Unknown Non-blood Collection / Unknown 07/10/2024 2:11 PM EST 07/10/2024 2:11 PM EST us Marlene Garcia MD LAB BODY FLUIDS AND STOOLS ORD ERABLES Final Result [facility] [address] [place] [address] from Last 3 Months Insurance [facility] Care Teams Transformer Coil Winder Relationship Specialty Start Date End Date Jil Au NP [address] [place] [address] PCP - General 04/19/24
== END ==
LOC: HO.CARD 11:00
PROVIDERS: PCP Nurse Practitioner Family; Visit Provider Nurse Practitioner Family
DX: R00.2 Palpitations (principal); R06.02 Shortness of breath
CPT/HCPCS: 93350; Q9957

== ENCOUNTER → 2024-09-12 11:02 | Outpatient (BNV) | payer BC, SELFPAY | PROVIDERS: PCP Nurse Practitioner Family | DX: R06.02 Shortness of breath (principal) | CPT/HCPCS: 93016; 93018; 93350; 93352 ==

== ENCOUNTER 2024-11-17 12:55 | Outpatient (REF) | payer BC, SELFPAY ==
--- NOTE | 2024-11-17 12:58 | PFT_ITS ---
Flows: FEV1: 112 % of predicted at 3.45 L FVC: 112 % of predicted at 4.18 L FEV1/FVC: 82 % Bronchodilator response: Absent Volumes: Total lung capacity: 102 % of predicted at 5.30 L Residual volume: 83 % of predicted at 1.03 L Slow vital capacity: 107 % of predicted at 4.27 L Expiratory reserve volume: 74 % of predicted at 0.93 L Diffusion capacity: Normal Impression: No obstructive or restrictive ventilatory defect. No bronchodilator response. Normal pulmonary function test. MTDD
--- OUTSIDE RECORDS SUMMARY | 2024-11-17 13:36 | XMS_ITS | Clinical Summary ---
Author Organization [facility] 299 [facility] Address [address] [place] [address] Phone Care Team Providers Care Ad Compositor Name Role Phone Charlotte Morales Primary Care Provider [phone] Social History Tobacco Use Types Packs/Day Years [...] Vaccine ( season) 2024 07/09/2021, 11/11/2020, 10/14/2020 Depression Screening 05/04/2024 HIV Screening 05/04/2024 Hepatitis C Screening 05/04/2024 Social Influencers of Health Screening 05/04/2024 Influenza Vaccine (Season Ended) 2025 05/29/2021, 05/02/2020, 05/10/2019, Additional history exists DTaP,Tdap,and Td Vaccines (2 - Td or [...] age to complete this topic Meningococcal B Vaccine Aged Out No l onger eligible based on patient's age to complete [...] on patient's age to complete this topic Insurance [facility] Care Teams Ad Compositor Relationship Specialty Start Date End Date Charlotte Morales FNP [address] [place] [phone] PCP - General Nurse Practitioner 09/22/24
[2024-11-17 13:45] VITALS: PULSE 78; O2SAT 97
== END 2024-11-17 12:56 | disposition home or self-care (01) ==
LOC: HO.RESP 12:55
PROVIDERS: PCP Nurse Practitioner Family; Visit Provider Nurse Practitioner Family
DX: R06.02 Shortness of breath (principal)
CPT/HCPCS: 94010; 94640; 94727; 94729

== ENCOUNTER → 2024-11-17 12:58 | Outpatient (BNV) | payer BC, SELFPAY | PROVIDERS: PCP Nurse Practitioner Family; Visit Provider Internal Medicine Pulmonary Disease | DX: R06.09 Other forms of dyspnea (principal) | CPT/HCPCS: 94060; 94727; 94729 ==

== ENCOUNTER 2024-11-24 09:23 | Outpatient (AMB) | payer BC, SELFPAY ==
--- NOTE | 2024-11-24 09:24 | A.OFFPC_ITS ---
Vital Signs 11/24/24 09:28 Height 5 ft 2 in Weight 152 lb 2 oz BMI 27.8 BP 101/67 Blood Pressure Location Rt brachial Position Sitting Respiration 12 Pulse 72 Pulse Source Pulse Oximeter Temp 97.3 F Temp Source Oral Pulse Oximetry (%) 97 Oxygen Delivery Method Room Air Intake Visit Reasons: racing heart Intake Note: Patient c/o racing heart Cancellation Clerk Required: No Allergies No Known Allergies Allergy (Verified 11/24/24 09:25) Medication List - Last Reconciled 11/24/24 by COLE MorrisP- buspirone 10 mg (2 x 5 mg) PO TID lorazepam (Ativan) 0.5 mg PO DAILY PRN propranolol 10 mg PO DAILY Tobacco use date assessed: 11/24/24 Dental Screening Dental Screen Date: 11/24/24 Did you have a dental visit in the last 12 months?: Yes Did you have a dental problem in the last 6 months where you did not have access to dental care?: No Was dental information given to patient?: Patient has dentist HPI HPI Comments History of Present Illness Details 39 year-old ARJUN, IBS History of Present Illness - The patient is a 39-year-old female pr esenting with shortness of breath and tachycardia. - She reports experiencing tachycardia w ith minimal exertion and having awareness of a heavy heartbeat even during simple tasks like rolling over or climbing stairs. - Occasional chest tightness and a sharp sensation are noted, sometimes in association with anxiety. - The patient describes feeling persiste ntly fatigued, unmotivated, and disinterested in usual activities, suggesting a depressive component might be contributing. - Prior workup revealed normal pulmonary function tests in October 2024 and a Holter monitor showing no arrhythmias 12/2023 - Normal stress echo 08/2024 - Orthostatic-like symptoms are experien paulo upon position changes. - There is an exploration of whether the se symptoms might be related to un derlying anxiety or depression given her emotional and physical state. Via the portal I know all of the testing keeps coming back perfect which is great but I still do not feel better. I am still having what feels like palpitations or a racing heart pretty often throughout the day, daily. I am still feeling that rapid heart rate and heavier than normal breathing with very little activity, bending over, a flight of stairs. I?m feeling it most mornings just when rolling over in bed. Not so much heavy breathing but my heart rate and just having an off almost nervous feeling. When I went for the pulmonary function test, the tech was talking about some people having these issues post Covid. I did have Covid but it was years ago and this didn?t start until not too long ago. What are your thoughts on that? The past week I?ve been feeling more of like a tightness and little twinges in and around my chest. I don?t want to call it chest pain. It comes and goes. Sometimes a little sharper than others. I know I had the holter monitor test done and I?m not sure if you saw those results but I finally got them and can send them over. You?ll understand them better than I do. That being said it feels like all of this is worse than a year ago when it was done. Could it just be anxiety? Which if it is I?m completely stumped as to why it could be so bad. I was having an awful day on Wednesday and ended up taking a half of the Ativan left over from my trip. I was also able to lay down for a bit so I?m not sure which helped or a combo of both. I?ve been trying to use CBD/THC drops and other things before medication but could it be that buspirone isn?t cutting it anymore? I know it?s a pretty effective drug and I?m taking it consistently. I just don?t know what else to do. I?m trying to pay more attention to if it is happening more when I?m less distracted and thinking about it more (which would make me think anxiety) but I?m not sure yet. Physical Exam General: Well developed, well nourished, in no acute distress. Appears stated age. Head: Normocephalic, atraumatic. Eyes: Pupils are equal, round and reactive to light and accommodation. Conjunctivae are clear. Vision grossly normal. Lungs: Clear to auscultation bilaterally. No rales, rhonchi or wheeze noted. Good air flow in all hairston. Heart: Regular rate and rhythm. No murmurs, click, rubs or gallops are noted. Unable to replicate sx during exam today w position changes, vagal manuever Pulses: Peripheral pulses are equal and palpable bilaterally. Extremities: No clubbing, cyanosis nor edema is noted. Psych: Mood and affect appropriate Discussion Notes We discussed the likely diagnosis of anxiety contributing to the observed symptoms of shortness of breath and palpitations along with possible depression given her recent mood and motivation changes. After reviewing the results of various prior diagnostic tests, which showed no structural heart or lung disease, I suggested that her symptoms may be more related to mood disorders or anxiety conditions. We covered possible treatments, including starting escitalopram (Lexapro), which could address both anxiety and depressive symptoms. I advised the patient to increase fluid intake with electrolyte solutions and encouraged the use of compression garments as non-pharmacologic measures. A discussion on the delayed sleep study and its potential relevance to her symptoms was included. I recommended continued monitoring, including a possible cardiology referral or tilt table test if symptoms persist or worsen. Follow-up was instructed to assess the effectiveness of the medications and any symptom changes. Assessment and Plan 1. Shortness of breath and tachycardia Symptoms are likely linked to anxiety without any structural heart or lung disease. Escitalopram is introduced to address anxiety, and electrolyte hydration, compression garments, and monitoring were recommended to address associated symptoms. 2. Anxiety and possible depression Signs point to depression, potentially contributing to physical symptoms. Escitalopram will be introduced, on top of ongoing buspirone, to enhance management of both anxiety and depressive symptoms. Counseling on side effects and follow-up monitoring were discussed. Results: 12/2023 holter reviewed: NSR with periods of bradycardia, No afib, rare PAC, one PVC, no pause, longest R-R 1.3 seconds, diary correlates with NSR rates 57-81 10/2024 pft normal 08/2024 Stress echo Acquisition Time: 2024-09-12 11:13:09 Total Exercise Time: 00:10:40 Test Indications: Palpitations Medications: BUSPIRONE Protocol: SOHAM Max HR: 162 BPM 88% of Pred: 184 BPM Max BP: 140/80 mmHG Max Work Load: 12.8 METS Exercise Stress Test with exercise 10 mins 40 secs of Soham Protocol, achieving 86% MPHR, with reports of SOB, no chest discomfort, without any arrythmias, with normotensive response to exercise. Without EKG changes meeting criteria for ischemia. In recovery, breathing returned to baseline. Echo images obtained by tech at rest adn post peak exercise. Definity contrast utilized. Tets reviewed with Dr. Horta. Exercise echocardiogram was reviewed. At rest, there is normal LVEF and wall motion. With peak exercise, there is appropriate augmentation of wall thickeing and contractility. There is normal decrease in end systolic volumes. No evidence of exercise induced diastolic dysfunction or pulmonary hypertension. Overall, normal study. Acquisition Time: 2024-09-12 11:13:09 Total Exercise Time: 00:10:40 Test Indications: Palpitations Medications: BUSPIRONE Protocol: SOHAM Max HR: 162 BPM 88% of Pred: 184 BPM Max BP: 140/80 mmHG Max Work Load: 12.8 METS Exercise Stress Test with exercise 10 mins 40 secs of Soham Protocol, achieving 86% MPHR, with reports of SOB, no chest discomfort, without any arrythmias, with normotensive response to exercise. Without EKG changes meeting criteria for ischemia. In recovery, breathing returned to baseline. Echo images obtained by tech at rest adn post peak exercise. Definity contrast utilized. Tets reviewed with Dr. Horta. Flows: FEV1: 112 % of predicted at 3.45 L FVC: 112 % of predicted at 4.18 L FEV1/FVC: 82 % Bronchodilator response: Absent Volumes: Total lung capacity: 102 % of predicted at 5.30 L Residual volume: 83 % of predicted at 1.03 L Slow vital capacity: 107 % of predicted at 4.27 L Expiratory reserve volume: 74 % of predicted at 0.93 L Diffusion capacity: Normal Impression: No obstructive or restrictive ventilatory defect. No bronchodilator response. Normal pulmonary function test. Patient Instructions - Begin taking escitalopram daily, with or without food. - Drink plenty of fluids containing elec trolytes regularly. - Wear compression garments if manageabl e to help with orthostatic symptoms. - Notify the clinic if new symptoms deve lop or if current symptoms worsen. - Try to move up the scheduled sleep tayo dy if possible for further evaluation. - RTO 6 weeks to fu on escitalopram star t, sooner PRN. we can review sleep study results, too if avail. Consent Patient was informed and verbally consented to the use of an ambient scribe for clinic note documentation during this visit. Total time spent caring for the patient today was 45 minutes. This includes time spent before the visit reviewing the chart, time spent during the visit, and time spent after the visit on documentation, reviewing laboratory results, diagnostic imaging, medications, performing a medically necessary evaluation, counseling on diagnoses, care coordination, ordering appropriate tests, ordering appropriate medications, review of tests performed by other providers, reporting test results with the patient, communication with other healthcare providers. 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 1. Little interest or pleasure in doing things: not at all 2. Feeling down, depressed, or hopeless: not at all 3. Trouble falling or staying asleep, or sleeping too much: not at all 4. Feeling tired or having little energy: not at all 5. Poor appetite or overeating: not at all 6. Feeling bad about yourself - or that you are a failure or have let yourself or your family down: not at all 7. Trouble concentrating on things, such as reading the newspaper or watching television: not at all 8. Moving or speaking so slowly that other people could have noticed. Or the opposite - being so fidgety or restless that you have been moving around a lot more than usual: not at all 9. Thoughts that you would be better off or of hurting yourself in some way: not at all Total score: 0 Depression Screening Interpretation: Negative Depression Screening Done: Yes 02245 - PHQ-9 Billing: Yes Source: Developed by Drs. Randy Robins, Monae Maldonado, Sen Muller and colleagues, with an educational ada from [employer]. Thrive Questionnaire Date Thrive assessed: 11/24/24 I am a: Patient What is your living situation today?: I have a steady place to live Within the past 12 months, did the food you bought not last and you didn't have the money to get more?: Never true Within the past 12 months, did you worry whether your food would run out before you got money to buy more?: Never true Do you have trouble paying for medicines?: No Do you have trouble getting transportation to medical appointments?: No Do you have trouble paying your heating and electricity bill?: No Do you have trouble taking care of your child, family member or friend?: No Do you have trouble with day-to-day activities such as bathing, preparing meals, shopping, managing finances, etc.?: No Are you currently unemployed and looking for a job?: No Are you interested in more education?: No THRIVE Score: 0 ARJUN-7 AMB Questionnaire ARJUN-7 Date ARJUN - 7 assessed: 11/24/24 Feeling nervous, anxious, or on edge: 0 = Not at all Not being able to stop or control worryin = Not at all Worrying too much about different things: 0 = Not at all Trouble relaxin = Not at all Being so restless that it is hard to sit still: 0 = Not at all Becoming easily annoyed or irritable: 0 = Not at all Feeling afraid as if something awful might happen: 0 = Not at all Total ARJUN-7 score (0-4 normal; 5-9 mild; 10-14 moderate; 15-21 severe): 0 Source: Developed by Drs. Randy Robins, Monae Maldonado, Sen Muller and colleagues, with an educational ada from [employer]. ARJUN-7 Assessment Billing ARJUN-7 Assessment Tool: ARJUN-7 Assessment 78098 Physical exam (Primary Care) Vital Signs: Last Vital Signs Temp 97.3 F 11/24/24 09:28 Pulse 72 11/24/24 09:28 Resp 12 11/24/24 09:28 BP 101/67 11/24/24 09:28 Pulse Ox 97 11/24/24 09:28 Oxygen Delivery Method Room Air 11/24/24 09:28 BMI result Body Mass Index 27.8 Tobacco/Smoking Status: Tobacco use Status Tobacco use date assessed 11/24/24 11/24/24 09:29 Patient Tobacco Use Status Never used Tobacco 11/24/24 09:29 e-Cigarette/Vaping Use Never Used 11/24/24 09:29 PHQ-9: PHQ-9 Score PHQ-9: Total score 0 11/24/24 09:43 Depression Screening Interpretation: Negative Thrive Assessment: Date of Thrive Assessment Date Thrive assessed 11/24/24 11/24/24 09:29 Coding Level of Care Code Est Pt Level 5 (18332) Complex EM visit Add On G2211 Diagnoses ARJUN (generalized anxiety disorder) F41.1 Palpitations R00.2 Exertional shortness of breath R06.02 Additional Codes ARJUN-7 Assessment Billing - ARJUN-7 Assessment Tool: ARJUN-7 Assessment 77502 ([id number]) PHQ-9 - 14253 - PHQ-9 Billing: Yes ([id number]) Assessment & Plan Assessment & Plan (1) ARJUN (generalized anxiety disorder): Comment: prozac and propranolol in the past Code(s): F41.1 - Generalized anxiety disorder Category: Medical (2) Palpitations: Code(s): R00.2 - Palpitations Category: Medical (3) Exertional shortness of breath: Code(s): R06.02 - Shortness of breath Category: Medical Plan . Medications: New escitalopram oxalate 5 mg PO DAILY 30 tabs 1RF
[2024-11-24 09:28] VITALS: BP 101/67; PULSE 72; RESP 12; TEMP 36.3; O2SAT 97; BMI 27.8
--- OUTSIDE RECORDS SUMMARY | 2024-11-24 09:59 | XMS_ITS | Clinical Summary ---
Author Organization [facility] [address] [facility] Address [address] [place] [address] Phone Care Team Providers Care Jumbo Operator Name Role Phone Charlotte Morales Primary Care Provider Social History Tobacco Use Types Packs/Day Years [...] patient's age to complete this topic Insurance [facility] Care Teams Jumbo Operator Relationship Specialty Start Date End Date Charlotte Morales FNP [address] [place] [phone] PCP - General Nurse Practitioner 09/22/24
== END 2024-11-24 10:20 | disposition home or self-care (01) ==
LOC: HO.HMCFM 09:23
PROVIDERS: PCP Nurse Practitioner Family; Visit Provider Nurse Practitioner Family
DX: R00.2 Palpitations (principal); F41.1 Generalized anxiety disorder; R06.02 Shortness of breath

== ENCOUNTER → 2024-11-24 09:23 | Outpatient (BNVA) | payer BC, SELFPAY | PROVIDERS: PCP Nurse Practitioner Family; Visit Provider Nurse Practitioner Family | DX: R06.02 Shortness of breath (principal); R00.2 Palpitations; F41.1 Generalized anxiety disorder | CPT/HCPCS: 96127 ==

== ENCOUNTER → 2025-01-18 10:00 | Outpatient (BNV) | payer BC, SELFPAY | PROVIDERS: PCP Nurse Practitioner Family; Visit Provider Internal Medicine | DX: R06.83 Snoring (principal) | CPT/HCPCS: 95806 ==

== ENCOUNTER → 2025-01-18 14:43 | Outpatient (REF) | payer BC, SELFPAY ==
--- OUTSIDE RECORDS SUMMARY | 2025-01-18 17:54 | XMS_ITS | Clinical Summary ---
Author Organization [facility] [address] [facility] Address [address] [place] [address] Phone Care Team Providers Care Manager Mall Name Role Phone Charlotte Morales Primary Care Provider [phone] Social History Tobacco Use Types Packs/Day Years [...] patient's age to complete this topic Insurance [facility] Care Teams Manager Mall Relationship Specialty Start Date End Date Charlotte Morales FNP [address] [place] [phone] PCP - General Nurse Practitioner 09/22/24
== END ==
LOC: HO.SL 14:43
PROVIDERS: PCP Nurse Practitioner Family; Visit Provider Nurse Practitioner Family
DX: R06.83 Snoring (principal); G47.10 Hypersomnia, unspecified
CPT/HCPCS: 95806

== ENCOUNTER 2025-03-01 11:48 | Outpatient (AMB) | payer BC, SELFPAY ==
--- NOTE | 2025-03-01 11:49 | A.OFFPC_ITS ---
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: No Allergies No Known Allergies Allergy (Verified 03/01/25 12:21) Medication List - Last Reconciled 03/01/25 by COLE MorrisP- buspirone 10 mg (2 x 5 mg) PO TID escitalopram oxalate 5 mg PO DAILY lorazepam (Ativan) 0.5 mg PO DAILY PRN Tobacco use date assessed: 03/01/25 Dental Screening Dental Screen Date: 03/01/25 Did you have a dental visit in the last 12 months?: Yes Did you have a dental problem in the last 6 months where you did not have access to dental care?: No Was dental information given to patient?: Patient has dentist HPI HPI Comments History of Present Illness Details 39-year-old ARJUN, IBS, gluten intolerance 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, pt will schedule a f/u ?Tdap declined flu 2023 Specialists: Counselor FABIAN Garcia Capsule Endoscopy WNL 06/2024; Did accupuncture for chronic GI issues History of Present Illness - The patient is a 39-year-old female pr esenting for CPE - c/o ongoing fatigue and lack of motiva tion. - Diagnosed with generalized anxiety dis order; under treatment with buspirone and escitalopram. Which has helped. But physical sx persist. - Recent normal sleep study noted, snori ng present but no sleep apnea identified. - Gluten intolerance identified, with di etary modification leading to symptom improvement. - Awaiting results for deficiency testin g of magnesium, zinc, and B vitamins. - Active w/ [facility] - Regular gym attendance and attempts to maintain a balanced diet. - Recent reduction of alcohol consumptio n to improve overall health. - Reports feeling unmotivated and fatigu ed, impacting willingness to engage in activities. Review of Systems - General: Reports persistent fatigue an d lack of motivation. - Respiratory: Denies sleep apnea, sleep study normal. - Gastrointestinal: Reports gluten intol erance. - Neurological: Denies family history of MS; reports ongoing fatigue and lack of energy. Physical Exam General: Well developed, well nourished, in no acute distress. Appears stated age. Head: Normocephalic, atraumatic. Eyes: Pupils are equal, round and reactive to light and accommodation. Conjunctivae are clear. Vision grossly normal. Ears: TMs clear AU, EACS WNL Nose: Patent, without discharge. Neck: Supple, no adenopathy or thyromegaly. Breast: Edu on SBE Lungs: Clear to auscultation bilaterally. No rales, rhonchi or wheeze noted. Good air flow in all hairston. Heart: Regular rate and rhythm. No murmurs, click, rubs or gallops are noted. Abdomen: Bowel sounds present in all quadrants. The abdomen is soft, nontender, with no masses or organomegaly noted. No hernias are noted. : Deferred. Reviewed MARTA & recommendations for routine SALESPERSON USED CARS Pulses: Peripheral pulses are equal and palpable bilaterally. Extremities: No clubbing, cyanosis nor edema is noted. Neurologic: Gait and station normal. Cranial Nerves 2-12 intact. Motor strength grossly symmetrical and intact. No sensory loss. Balance normal. Skin: No rashes, ulcers, or lesions noted. Turgor is good. Skin color is good. Hair and nails are without abnormalities. Psych: Normal eye contact, affect and mood appropriate, and normal interactions. Patient is alert and appropriate to context. Results - Tests: Recent sleep study was normal, confirming absence of apnea. - Labs: Awaiting results for magnesium, zinc, B vitamins, and cortisol levels. 08/2024 Alk phos low otherwise labs unrem arkable Discussion Notes We reviewed the patient's concerns primarily related to ongoing fatigue and lack of motivation. We discussed the normal findings of the recent sleep study to rule out sleep apnea. We agreed to await the results of the pending lab tests to identify any possible deficiencies that could be contributing to her symptoms. There was an exploration of further testing, such as an in-lab sleep study, should current evaluations remain inconclusive, though the patient was advised this is not immediately necessary. We also discussed maintaining her current regimen for anxiety management, while being open to adjustments based on lab results. Patient was given time to ask questions. All questions were answered to their satisfaction. Assessment and Plan 1. Generalized Anxiety Disorder - Continue buspirone and escitalopram. 2. Fatigue and Lack of Motivation - Await lab results. - Consider in lab PSG to eval for sleep disorder 3. Gluten Intolerance - Maintain current diet. - REminded labs done to eval this in the absence of gluten intake may be false negative; she can review this w/ functional med Patient Instructions - Keep taking your medication as prescri bed. - Maintain your gluten-free diet. - Go to the gym regularly and eat a crissy nced diet. - Check back with us once your lab resul ts are ready. - Contact our office if you have any new or worsening symptoms. - RTO 6 mo routine fu sooner prn Consent Patient was informed and verbally consented to the use of an ambient scribe for clinic note documentation during this visit. An additional 30 minutes was spent addressing the problem(s) noted at todays visit. This includes time spent before the visit reviewing the chart, time spent during the visit, and time spent after the visit on documentation reviewing laboratory results, diagnostic imaging, medications, performing a medically necessary evaluation, counseling on diagnoses, care coordination, ordering appropriate tests, ordering appropriate medications, review of tests performed by other providers, reporting test results with the patient, communication with other healthcare providers. 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 1. Little interest or pleasure in doing things: not at all 2. Feeling down, depressed, or hopeless: not at all 3. Trouble falling or staying asleep, or sleeping too much: not at all 4. Feeling tired or having little energy: not at all 5. Poor appetite or overeating: not at all 6. Feeling bad about yourself - or that you are a failure or have let yourself or your family down: not at all 7. Trouble concentrating on things, such as reading the newspaper or watching television: not at all 8. Moving or speaking so slowly that other people could have noticed. Or the opposite - being so fidgety or restless that you have been moving around a lot more than usual: not at all 9. Thoughts that you would be better off or of hurting yourself in some way: not at all Total score: 0 Depression Screening Interpretation: Negative Depression Screening Done: Yes 11269 - PHQ-9 Billing: Yes Source: Developed by Drs. Randy Robins, Monae Maldonado, Sen Muller and colleagues, with an educational ada from [employer]. Thrive Questionnaire Date Thrive assessed: 03/01/25 I am a: Patient What is your living situation today?: I have a steady place to live Within the past 12 months, did the food you bought not last and you didn't have the money to get more?: Never true Within the past 12 months, did you worry whether your food would run out before you got money to buy more?: Never true Do you have trouble paying for medicines?: No Do you have trouble getting transportation to medical appointments?: No Do you have trouble paying your heating and electricity bill?: No Do you have trouble taking care of your child, family member or friend?: No Do you have trouble with day-to-day activities such as bathing, preparing meals, shopping, managing finances, etc.?: No Are you currently unemployed and looking for a job?: No Are you interested in more education?: No Please select the resources that you would like help with: None Currently or been in a relationship where the following occur: No concerns reported THRIVE Score: 0 AUDIT C Alcohol Use Questionnaire (AUDIT-C) 1. How often do you have a drink containing alcohol?: Never 3. How often do you have six or more drinks on one occasion?: Never Total Score: 0 Score Reviewed/Action Taken: Yes ARJUN-7 AMB Questionnaire ARJUN-7 Date ARJUN - 7 assessed: 03/01/25 Feeling nervous, anxious, or on edge: 0 = Not at all Not being able to stop or control worryin = Not at all Worrying too much about different things: 0 = Not at all Trouble relaxin = Not at all Being so restless that it is hard to sit still: 0 = Not at all Becoming easily annoyed or irritable: 0 = Not at all Feeling afraid as if something awful might happen: 0 = Not at all Total ARJUN-7 score (0-4 normal; 5-9 mild; 10-14 moderate; 15-21 severe): 0 Source: Developed by Drs. Randy Robins, Monae Maldonado, Sen Muller and colleagues, with an educational ada from [employer]. ARJUN-7 Assessment Billing ARJUN-7 Assessment Tool: ARJUN-7 Assessment 60606 Physical exam (Primary Care) Vital Signs: Last Vital Signs Temp 97.1 F 03/01/25 11:52 Pulse 74 03/01/25 11:52 Resp 12 03/01/25 11:52 BP 118/69 03/01/25 11:52 Pulse Ox 99 03/01/25 11:52 Oxygen Delivery Method Room Air 03/01/25 11:52 BMI result Body Mass Index 28.2 Tobacco/Smoking Status: Tobacco use Status Tobacco use date assessed 03/01/25 03/01/25 11:53 Patient Tobacco Use Status Never used Tobacco 03/01/25 11:53 e-Cigarette/Vaping Use Never Used 03/01/25 11:53 PHQ-9: PHQ-9 Score PHQ-9: Total score 0 03/01/25 12:21 Depression Screening Interpretation: Negative Thrive Assessment: Date of Thrive Assessment Date Thrive assessed 03/01/25 03/01/25 11:53 Currently or been in a relationship where the following occur: No concerns reported Results Reviewed Results Reviewed: 12/2023 holter reviewed: NSR with periods of bradycardia, No afib, rare PAC, one PVC, no pause, longest R-R 1.3 seconds, diary correlates with NSR rates 57-81 10/2024 pft normal 01/2025 Sleep study normal, + snoring Coding Level of Care Code Est Pt Level 4 (59890) Est Pt Prev Care 18-39y(67733) Diagnoses Encounter for general adult medical examination without abnormal findings Z00.00 Gluten intolerance K90.41 History of sleep study Z92.89 Low serum alkaline phosphatase R74.8 ARJUN (generalized anxiety disorder) F41.1 Palpitations R00.2 Exertional shortness of breath R06.02 Irritable bowel syndrome with both constipation and diarrhea K58.2 Irritable bowel syndrome type: with both diarrhea and constipation Chronic fatigue R53.82 Additional Codes ARJUN-7 Assessment Billing - ARJUN-7 Assessment Tool: ARJUN-7 Assessment 42599 ([id number]) PHQ-9 - 91702 - PHQ-9 Billing: Yes ([id number]) Assessment & Plan Assessment & Plan (1) Encounter for general adult medical examination without abnormal findings: Onset Date: ~03/01/25 Code(s): Z00.00 - Encounter for general adult medical examination without abnormal findings Category: Medical (2) Gluten intolerance: Onset Date: 09/2024 Comment: diagnosed via functional medicine Code(s): K90.41 - Non-celiac gluten sensitivity Category: Medical (3) History of sleep study: Onset Date: ~01/2025 Comment: NEGATIVE EXCEPT FOR SNORING Code(s): Z92.89 - Personal history of other medical treatment Category: Medical (4) Low serum alkaline phosphatase: Code(s): R74.8 - Abnormal levels of other serum enzymes Category: Medical (5) ARJUN (generalized anxiety disorder): Comment: prozac and propranolol in the past Code(s): F41.1 - Generalized anxiety disorder Category: Medical (6) Palpitations: Code(s): R00.2 - Palpitations Category: Medical (7) Exertional shortness of breath: Code(s): R06.02 - Shortness of breath Category: Medical (8) IBS (irritable bowel syndrome): Code(s): K58.9 - Irritable bowel syndrome, unspecified Category: Medical Qualifiers: Irritable bowel syndrome type: with both diarrhea and constipation Qualified Code(s): K58.2 - Mixed irritable bowel syndrome (9) Chronic fatigue: Code(s): R53.82 - Chronic fatigue, unspecified Category: Medical Plan , Medications: Refilled escitalopram oxalate 5 mg PO DAILY 90 tabs 1RF Patient Instructions: Health screenings for women You should visit your health care provider from time to time, even if you are healthy. The purpose of these visits is to: Screen for medical issues Assess your risk for future medical problems Encourage a healthy lifestyle Update vaccinations and other preventive care services Help you get to know your provider in case of an illness Information Even if you feel fine, you should still see your provider for regular checkups. These visits can help you avoid problems in the future. For example, the only way to find out if you have high blood pressure is to have it checked regularly. High blood sugar and high cholesterol levels also may not have any symptoms in the early stages. A simple blood test can check for these conditions. There are specific times when you should see your provider or receive specific health screenings. The [place] Preventive Services Task Force publishes a list of recommended screenings. Below are screening guidelines for women ages 18 to 39. BLOOD PRESSURE SCREENING Your blood pressure should be checked at least once every 3 to 5 years if: Your blood pressure is in the normal range (top number less than 120 mm Hg and bottom number less than 80 mm Hg) You don't have risk factors for high blood pressure Ask your provider if you need your blood pressure checked more often if: The top number is 120 to 129 mm Hg or the bottom number is 70 to 79 mm Hg You have diabetes, heart disease, kidney problems, are overweight, or have certain other health conditions You have a first-degree relative with high blood pressure You are Black You had high blood pressure during a If the top number is 130 mm Hg or greater or the bottom number is 80 mm Hg or greater, this is considered stage 1 hypertension. Schedule an appointment with your provider to learn how you can reduce your blood pressure. Watch for blood pressure screenings in your area. Ask your provider if you can stop in to have your blood pressure checked. BREAST CANCER SCREENING Experts do not agree about the benefits of breast self-exams in finding breast cancer or saving lives. Talk to your provider about what is best for you. A screening mammogram is not recommended for most women under age 40. Your provider may discuss and recommend mammograms, MRI scans, or ultrasounds if you have an increased risk for breast cancer, such as: A mother or sister who had breast cancer at a young age (most often starting screening earlier than the age the close relative was diagnosed) You carry a high-risk genetic marker CERVICAL CANCER SCREENING Cervical cancer screening should start at age 21 years unless your provider advises otherwise. After the first test: Women ages 21 through 29 should have a Pap test every 3 years. Exoprts do not agree on whether HPV testing is recommended for this age group. Women ages 30 through 65 should be screened with either a Pap test every 3 years or the HPV test every 5 years or both tests every 5 years (called cotesting ). Women who have been treated for precancer (cervical dysplasia) should continue to have Pap tests for 20 years after treatment or until age 65, whichever is longer. If you have had your uterus and cervix removed (total hysterectomy), and you have not been diagnosed with cervical cancer or precancer (high grade cervical neoplasia), you do not need cervical cancer screening. CHOLESTEROL SCREENING Cholesterol screening should begin at: Age 45 for women with no known risk factors for coronary heart disease Age 20 for women with known risk factors for coronary heart disease Repeat cholesterol screening should take place: Every 5 years for women with normal cholesterol levels More often if changes occur in lifestyle (including weight gain and diet) More often if you have diabetes, heart disease, kidney problems, or certain other conditions DIABETES SCREENING You should be screened for diabetes starting at age 35 and then repeated every 3 years if you have no risk factors for diabetes. Screening may need to start earlier and be repeated more often if you have other risk factors for diabetes, such as: You have a first degree relative with diabetes. You are overweight or have obesity. You have high blood pressure, prediabetes, or a history of heart disease. Screening for diabetes should be done if you are planning to become and you are overweight and have other risk factors such as high blood pressure. DENTAL EXAM Go to the dentist once or twice every year for an exam and cleaning. Your dentist will evaluate if you need more frequent visits. EYE EXAM Have an eye exam every 5 to 10 years before age 40. If you have vision problems, have an eye exam every 2 years or more often if recommended by your provider. You should have an eye exam that includes an examination of your retina (back of your eye) at least every year if you have diabetes. IMMUNIZATIONS Commonly needed vaccines include: Flu shot: get one every year. COVID-19 vaccine: ask your provider what is best for you. Tetanus-diphtheria and acellular pertussis (Tdap) vaccine: have one at or after age 19 as one of your tetanus-diphtheria vaccines if you did not receive it as an adolescent. Tetanus-diphtheria: have a booster (or Tdap) every 10 years. Varicella vaccine: receive 2 doses if you never had chickenpox or the varicella vaccine. Hepatitis B vaccine: receive 2, 3, or 4 doses, depending on your exact cir cumstances. Measles, mumps, and rubella (MMR) vaccine: receive 1 to 2 doses if you are not already immune to MMR. Your provider can tell you if you are immune. Ask your provider about the human papillomavirus (HPV) vaccine if: You have not received the HPV vaccine in the past You have not completed the full vaccine series (you should catch up on this shot) Ask your provider if you should receive other immunizations if you have certain health problems that increase your risk for some diseases such as pneumonia. INFECTIOUS DISEASE SCREENING Women who are sexually active should be screened for chlamydia and gonorrhea up until age 25. Women 25 years and older should be screened for chlamydia and gonorrhea if at high risk. Screening for hepatitis C: All adults ages 18 to 79 should get a one-time test for hepatitis C. people should be screened at every . Screening for human immunodeficiency virus (HIV): All people ages 15 to 65 should get a one-time test for HIV. Depending on your lifestyle and medical history, you may also need to be screened for infections such as syphilis and HIV, as well as other infections. PHYSICAL EXAM All adults should visit their provider from time to time, even if they are healthy. The purpose of these visits is to: Screen for disease Assess your risk of future medical problems Encourage a healthy lifestyle Update your vaccinations and other preventive care services Maintain a relationship with a provider in case of an illness Your height, weight, and BMI should be checked at every exam. During your exam, your provider may ask you about: Depression and anxiety Diet and exercise Alcohol and tobacco use Safety issues, such as using seat belts, smoke detectors, and intimate partner violence Your medicines and risk for interactions SKIN SELF-EXAM Your provider may check your skin for signs of skin cancer, especially if you're at high risk, such as if you: Have had skin cancer before Have close relatives with skin cancer Have a weakened immune system OTHER SCREENING Talk with your provider about colon cancer screening if you have a strong family history of colon cancer or polyps, or if you have had inflammatory bowel disease or polyps yourself. Routine bone density screening of women under 40 is not recommended.
[2025-03-01 11:52] VITALS: BP 118/69; PULSE 74; RESP 12; TEMP 36.2; O2SAT 99; BMI 28.2
--- OUTSIDE RECORDS SUMMARY | 2025-03-01 12:20 | XMS_ITS | Clinical Summary ---
Author Organization [facility] [address] 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 Name Role Phone Charlotte Morales Primary Care [...] Vaccine ( season) 2024 07/09/2021, 11/11/2020, 10/14/2020 HIV Screening 05/04/2024 Hepatitis C Screening 05/04/2024 Social Influencers of Health Screening 05/04/2024 Depression Screening 07/26/2024 Influenza Vaccine (#1) 2025 , 05/02/2020, 05/10/2019, Additional history exists DTaP,Tdap,and Td [...] 5 Years) and At-Risk Patients (6 to 49 Years) Aged Out No longer eligible based on patient's age to complete this topic RSV Immunization Patients Under 20 months Aged Out No longer eligible based on patient's age to complete this topic Varicella Vaccines Aged Out No longer eligible based on patient's age to complete this topic Insurance [facility] Care Teams Auto Body Repair Teacher Relationship Specialty Start Date End Date Charlotte Morales FNP [address] [place] [phone] PCP - General Nurse Practitioner 09/22/24
== END 2025-03-01 12:55 | disposition home or self-care (01) ==
LOC: HO.HMCFM 11:48
PROVIDERS: PCP Nurse Practitioner Family; Visit Provider Nurse Practitioner Family
DX: Z00.00 Encounter for general adult medical examination without abnormal findings (principal); R74.8 Abnormal levels of other serum enzymes; K90.41 Non-celiac gluten sensitivity; F41.1 Generalized anxiety disorder; R00.2 Palpitations; R06.02 Shortness of breath; Z92.89 Personal history of other medical treatment; K58.2 Mixed irritable bowel syndrome; R53.82 Chronic fatigue, unspecified

== ENCOUNTER → 2025-03-01 11:48 | Outpatient (BNVA) | payer BC, SELFPAY | PROVIDERS: PCP Nurse Practitioner Family; Visit Provider Nurse Practitioner Family | DX: Z00.00 Encounter for general adult medical examination without abnormal findings (principal); F41.1 Generalized anxiety disorder; K90.41 Non-celiac gluten sensitivity; Z92.89 Personal history of other medical treatment; R74.8 Abnormal levels of other serum enzymes; R00.2 Palpitations; R06.02 Shortness of breath; K58.2 Mixed irritable bowel syndrome; R53.82 Chronic fatigue, unspecified | CPT/HCPCS: 96127 ==

== ENCOUNTER → 2025-06-18 19:30 | Outpatient (REF) | payer BC, SELFPAY ==
--- OUTSIDE RECORDS SUMMARY | 2025-06-18 21:26 | XMS_ITS | Clinical Summary ---
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 Name Role Phone Charlotte Morales Primary [...] 11/09/2006 Cervical Cancer Screening: Pap Smear 11/09/2008 HIV Screening 05/04/2024 Hepatitis C Screening 05/04/2024 Social Influencers of Health Screening 05/04/2024 Depression Screening 07/26/2024 COVID-19 Vaccine ( season) 2025 07/09/2021, 11/11/2020, 10/14/2020 Influenza Vaccine (#1) 2025 , 05/02/2020, 05/10/2019, Additional history exists DTaP,Tdap,and Td Vaccines (2 - Td or Tdap) 09/08/2029 09/08/2019 RSV Immunization Adult Patients (1 - 1-dose 75+ series) 11/09/2062 HPV Vaccines Completed 06/20/2008, 01/25, 12/22/2007 HIB [...] patient's age to complete this topic Insurance [facility] Care Teams Wastewater Operator Relationship Specialty Start Date End Date Charlotte Morales FNP [address] [place] [phone] PCP - General Nurse Practitioner 09/22/24
== END ==
LOC: HO.SL 19:30
PROVIDERS: PCP Nurse Practitioner Family; Visit Provider Nurse Practitioner Family
DX: G47.10 Hypersomnia, unspecified (principal); R53.82 Chronic fatigue, unspecified
CPT/HCPCS: 95810

== ENCOUNTER → 2025-06-18 21:57 | Outpatient (BNV) | payer BC, SELFPAY | PROVIDERS: PCP Nurse Practitioner Family; Visit Provider Psychiatry & Neurology Neurology | DX: G47.33 Obstructive sleep apnea (adult) (pediatric) (principal); R06.83 Snoring; G47.61 Periodic limb movement disorder | CPT/HCPCS: 95810 ==